=== PATIENT | female | born 1950 | race Caucasian/White ===

== ENCOUNTER 2023-03-06 13:20 | Day surgery (SDC) | payer MEDICARE, SELFPAY ==
--- NOTE | 2023-03-06 | PATH_ITS ---
[facility] Accession Number: [id number] No. of containers..04 Tissue . 01 Material submitted: . PART A: stomach - ANTRUM PART B: gastrointestinal site - GASTRIC POLYP PART C: esophagus - MID ESOPHAGUS PART D: cecum - CECUM . 01 Diagnosis: A. Gastric Antrum, Biopsy: Gastric antral mucosa with minimal chronic inflammation. Negative for Helicobacter organisms by immunohistochemistry. Negative for intestinal metaplasia. Negative for dysplasia or malignancy. . B. Gastric Polyp, Biopsy: Fundic gland polyp. No evidence of Helicobacter organisms on H/E stain. Negative for intestinal metaplasia. Negative for dysplasia and malignancy. . C. Mid Esophagus, Biopsy: Squamous epithelium with no diagnostic abnormality. Intraepithelial eosinophils are not increased. Negative for dysplasia and malignancy. . D. Cecum, Biopsy: Tubular adenoma. [facility] 03/10/2023 1515 Local . 01 Electronically signed: . Christiano Moffett MD, PhD, Pathologist NPI- [id number] . 01 Gross description: . Part A: ANTRUM: Received in formalin are 2 fragment(s) of ramey, soft tissue measuring 0.4 x 0.3 x 0.2 cm to 0.1 x 0.1 x 0.1 cm submitted entirely in 1 cassette(s) Part B: GASTRIC POLYP: Received in formalin are 2 fragment(s) of ramey, soft tissue measuring 0.2 x 0.2 x 0.2 cm to 0.2 x 0.2 x 0.1 cm submitted entirely in 1 cassette(s) Part C: MID ESOPHAGUS: Received in formalin are 2 fragment(s) of ramey, soft tissue measuring 0.2 x 0.2 x 0.1 cm to 0.2 x 0.1 x 0.1 cm submitted entirely in 1 cassette(s) Part D: CECUM: Received in formalin is 1 fragment(s) of ramey, soft tissue measuring 0.2 x 0.2 x 0.2 cm submitted entirely in 1 cassette(s) [facility] 03/07/2023 1650 Local . 01 Microscopic: . A. An immunohistochemical stain was performed to evaluate for Helicobacter organisms and is negative. The control stain showed appropriate reactivity. . * This test was developed and its performance characteristics determined by [facility]. It has not been cleared or approved by the U.S. Food and Drug Administration. The FDA has determined that such clearance or approval is not necessary. This test is used for clinical purposes. It should not be regarded as investigational or for research. . 01 Pathologist provided ICD-10: R13.10, K29.70, K31.7, D12.0 . 01 CPT . 342295, 222998, 034614, 099291, [id number] Specimen Comment: A courtesy copy of this report has been sent to [phone] Performed at: 01 [facility] Cyt[facility] [address] [place] [address], [place], [place] [id number] MD Gomez Law MD Phone: [phone]
[2023-03-06 13:46] VITALS: BP 132/78; PULSE 69; RESP 16; TEMP 36.8; O2SAT 96; BMI 31.1
[2023-03-06] MEDS: LACTATED RINGERS 1,000 ML 100 ML IV (14:00)
--- NOTE | 2023-03-06 14:54 | PM.HP.1 ---
History of Present Illness History of Present Illness Date Patient Seen: 03/06/23 Time Patient Seen: 14:54 Chief complaint: EGD/Colonoscopy Narrative: I reviewed my recent office note. No significant changes. [facility] Medical History Colon polyp Hypercholesteremia Sleep apnea Surgical History H/O knee surgery History of carpal tunnel surgery of left wrist History of carpal tunnel surgery of right wrist Hx of tonsillectomy Social History household members: none Smoking Status: Never smoker alcohol intake: never Meds Home Medications and Allergies Home Medications Medication Instructions Recorded Confirmed Type Fish Oil 2,400 mg PO DAILY 03/06/23 03/06/23 History Flonase 1 puff inhalation DAILY 03/06/23 03/06/23 History omeprazole 20 mg PO DAILY 03/06/23 03/06/23 History simvastatin 20 mg PO DAILY 03/06/23 03/06/23 History Allergies Allergy/AdvReac Type Severity Reaction Status Date / Time No Known Allergies Allergy Verified 03/06/23 13:37 Review of Systems Review of Systems ROS: Yes All systems reviewed with the patient and are negative except as otherwise documented Exam Vital Signs (past 8 hours): - 03/06/23 13:46 Temperature 98.2 F Pulse Rate 69 Respiratory Rate 16 Blood Pressure 132/78 Pulse Oximetry 96 Const General: cooperative HENMT Head: normal to inspection Eyes General: appearance normal, both eyes and all related structures Neck Neck: normal visual inspection Chest Chest: normal inspection of the chest Resp Effort & Inspection: normal respiratory effort Cardio Rate: regular rate GI Inspection: normal to inspection Skin General: no rashes or lesions noted Neuro General: patient alert and patient awake Extrem General: normal to inspection and no pedal edema Psych Appearance: grossly normal Assessment & Plan Assessment & Plan narrative: 72-year-old female with odynophagia and dysphagia. She has a normal barium swallow. She slightly improved with regular PPI. EGD is pursued today plus colonoscopy for colon cancer screening.
--- NOTE | 2023-03-06 14:55 | PM.PREOP ---
Pre-operative Note Interval Note History & Physical reviewed/Exam performed by Physician: Yes Changes to H&P: No ASA Class (for procedural sedation): II
--- NOTE | 2023-03-06 15:55 | P.OP.EGD&C_ITS ---
Operative Date/Time/Diagnoses Date of procedure: 03/06/23 Time of procedure: 15:55 Pre-op diagnosis: Dysphagia, odynophagia, colon cancer screening Post-op diagnosis: same Procedure & Clinicians Study performed: EGD with biopsies and colonoscopy with cold forceps polypectomy Same procedure as scheduled: Yes Indications: Dysphagia, odynophagia, colon cancer screening Surgeon: Daquan Sarabia Procedure Notes SCOAP/Timeout: Done Procedure in detail: After the risks and benefits were explained, written and verbal informed consent was obtained. The patient was brought into the procedure room and placed into the left lateral decubitus position. Please see anesthesia notes for sedation details. The scope was introduced into the mouth through the bite block and advanced under direct visualization to the 2nd portion of the duodenum. The scope was slowly withdrawn carefully examining the mucosa for any defects or lesions. Retroflexed views were accomplished in the stomach. The stomach was decompressed, the scope was then removed from the patient who tolerated the procedure well. The patient was then turned around a digital rectal examination accomplished. The scope was introduced into the rectum and advanced to the cecum as identified by the appendiceal orifice and ileocecal valve. The scope was slowly withdrawn to carefully examine the mucosa for any defects or lesions. Multiple direct views were made through the dentate line to exclude pathology. Colon was decompressed scope removed from the patient who tolerated the procedure well. Pediatric colonoscope Bowel prep adequate Scope withdrawal time: 10 minutes Sedation minutes: 46 Complications: none Impression: 1. Duodenum: This was visually normal from the bulb through the 2nd portion. 2. Stomach: Patient had a mild gastropathy. Biopsies were taken from the antrum for exclusion of pathology and exclusion of H pylori. There was an approximately 6 mm polyp that was removed with cold forceps. Otherwise retroflexed views of the LES were unremarkable. The patient had a somewhat J- shaped stomach. 3. Esophagus: The squamocolumnar junction correlated with the top of the gastric folds. No acute erosive changes no strictures no mass lesions. There was some tension noted at the lower esophageal sphincter segment requiring me to pause before advancing the scope into stomach. No strictures no mass lesions. I took midesophageal biopsies for exclusion of eosinophilic esophagitis as well. 4. Colon: There was a small 4 mm polyp in the cecum addressed with cold forceps. No other significant mucosal pathology was appreciated throughout. Grade 2 hemorrhoids were noted on direct views. Endoscopic diagnosis 1. Lower esophageal sphincter tension 2. Gastric polyp 3. Gastropathy 4. Colon polyp 5. Grade 2 hemorrhoids Post-procedure Plan for aftercare: 1. Await histopathology. 2. If the polyp is adenomatous, repeat colonoscopy should be considered for 7 years time. 3. Contingent on histopathology results, further diagnostic testing with esophageal manometry and pH testing will likely be the next steps.
[2023-03-06 15:58] VITALS: BP 120/73; PULSE 67; RESP 14; TEMP 36.2; O2SAT 97
[2023-03-06 16:04] VITALS: BP 125/79; PULSE 72; RESP 16; O2SAT 96
[2023-03-06 16:08] VITALS: BP 124/80; PULSE 72; RESP 12; O2SAT 97
[2023-03-06 16:13] VITALS: BP 136/79; PULSE 63; RESP 16; O2SAT 97
== END 2023-03-06 16:31 | disposition home or self-care (01) ==
PROVIDERS: PCP Family Medicine; Referring Provider Internal Medicine Gastroenterology; Visit Provider Internal Medicine Gastroenterology
PROC: 0DJ08ZZ Inspection of Upper Intestinal Tract, Via Natural or Artificial Opening Endoscopic (ICD-10-PCS; CPT 43235; principal; 2023-03-06 14:30)
PROC: 0DJD8ZZ Inspection of Lower Intestinal Tract, Via Natural or Artificial Opening Endoscopic (ICD-10-PCS; CPT 45378; 2023-03-06 14:30)
DX: Z12.11 Encounter for screening for malignant neoplasm of colon (principal); R13.19 Other dysphagia; R13.10 Dysphagia, unspecified; K64.1 Second degree hemorrhoids; K31.9 Disease of stomach and duodenum, unspecified; K31.7 Polyp of stomach and duodenum; K29.50 Unspecified chronic gastritis without bleeding; D12.0 Benign neoplasm of cecum
CPT/HCPCS: 45380; 43239; J2704